=== PATIENT | male | born 1975 | race Caucasian/White ===

== ENCOUNTER 2025-06-18 09:56 | Outpatient (REF) | payer OTHER, SELFPAY ==
[2025-06-18 14:46] LABS: Hematocrit 45.9 % (42.0-52.0); Hemoglobin 15.5 g/dl (14.0-18.0); Mean Corpuscular HGB Conc 33.8 g/dl (31.0-36.0); Mean Corpuscular Hemoglobin 29.4 pg (27.0-33.0); Mean Corpuscular Volume 86.9 fL (80.0-98.0); NRBC Abs Auto 0.000 X10*3/uL (0.0-0.012); NRBC Pct Auto 0.0 /100WBC (0.0-0.2); Platelet Count 286 X10*3/uL (160-400); Red Blood Count 5.28 X10*6/uL (4.60-5.80); White Blood Count 6.6 X10*3/uL (4.8-10.8)
[2025-06-18 15:13] LABS: Alanine Aminotransferase 26 U/L (0-40); Albumin Level 4.5 g/dL (3.5-5.0); Alkaline Phosphatase 53 U/L (39-117); Anion Gap 10 (12-20); Aspartate Amino Transferase 18 U/L (5-37); Blood Urea Nitrogen 11 mg/dL (9-16); Calcium 9.7 mg/dL (8.4-10.2); Carbon Dioxide 31 mmol/L (22-29); Chloride 106 mmol/L (96-108); Cholesterol 202 mg/dL (<200); Estimated Glomerular Filt Rate > 60; HDL Cholesterol 46 mg/dL (>40); Potassium 4.2 mmol/L (3.3-5.1); Sodium 143 mmol/L (135-145); Total Protein 7.1 g/dL (6.5-8.0); Triglycerides 188 mg/dL (<150)
[2025-06-18 15:36] LABS: Folate > 20.0 ng/mL (> or = 4.0); Vitamin B12 512 pg/mL (200-900)
== END 2025-06-18 09:57 | disposition home or self-care (01) ==
LOC: HO.WFDLDS 09:56
PROVIDERS: PCP Nurse Practitioner Family; Visit Provider Nurse Practitioner Family
DX: Z00.00 Encounter for general adult medical examination without abnormal findings (principal); Z12.5 Encounter for screening for malignant neoplasm of prostate; Z23 Encounter for immunization; Z76.89 Persons encountering health services in other specified circumstances; M41.115 Juvenile idiopathic scoliosis, thoracolumbar region; M54.16 Radiculopathy, lumbar region
CPT/HCPCS: 36415; 80053; 80061; 82043; 82306; 82570; 82607; 82746; 83036; 84153; 84443; 85027; 90471; 90715; 96127

== ENCOUNTER 2025-06-18 09:56 | Outpatient (AMB) | payer OTHER, SELFPAY ==
--- NOTE | 2025-06-18 10:02 | MHC.PC.OV ---
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 Allergies oxycodone (From PERCOCET) Allergy (Unknown, Verified 06/18/25 10:27) RASH percocet Allergy (Unknown, Uncoded 06/18/25 10:06) rash Medication List - Last Reconciled 06/18/25 by VONDA Schmitt No Known Home Meds Tobacco use date assessed: 06/18/25 Dental Screening Dental Screen Date: 06/18/25 Did you have a dental visit in the last 12 months?: Yes Did you have a dental problem in the last 6 months where you did not have access to dental care?: No Was dental information given to patient?: Patient has dentist HPI HPI Comments History of Present Illness Details 50 y/o M with scoliosis with chronic low back pain with RLE radiculopathy s/p spinal fusion x 2 in 1989, 1992; 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 PCP: Dr Coby Rosario records Scoliosis with History of Spinal Fusion Surgeries: - Diagnosed with scoliosis, had spinal surgeries in 1989 and 1992. - Lumbar and thoracic areas affected. - Back brace used extensively Chronic low back pain d/t scoliosis s/p surgery. R foot is numb. Reports had EMG done in the past and was told it was a pinched nerve. - Sciatic issues with foot numbness, painful flare-ups. - Pinched nerve diagnosed previously. - Hip bone graft and muscle activity during exercise identified as potential aggravators. Review of Systems - Musculoskeletal: Reports history of scoliosis; denies chronic back pain; reports sciatic nerve issues with foot numbness and occasional flare-ups. - Neurological: Denies significant headaches; reports numbness in the foot. - Integumentary: Reports past skin rash with oxycodone use. - Respiratory: Denies breathing difficulties despite spinal condition. - Allergic/Immunologic: Reports allergies to oxycodone (rash) - General: Denies other surgeries besides spinal fusions and orbital tumor removal. Physical Exam General: Well developed, well nourished, in no acute distress. Appears stated age. Head: Normocephalic, atraumatic. Eyes: Pupils are equal, round and reactive to light and accommodation. Conjunctivae are clear. Vision grossly normal. Lungs: Clear to auscultation bilaterally. No rales, rhonchi or wheeze noted. Good air flow in all velazquez. Heart: Regular rate and rhythm. No murmurs, click, rubs or gallops are noted. Musculoskeletal: Joints are nontender, without swelling, redness, or effusions. Pulses: Peripheral pulses are equal and palpable bilaterally. Extremities: No clubbing, cyanosis nor edema is noted. Neuro: BRUNNER x 4, normal strength, tone and reflexes BLE. Large scar to back from surgery. Psych: Mood and affect appropriate. No anxiety or depression noted from screenings or during intake. Results Pending Discussion Notes I discussed with the patient the current status of his scoliosis and sciatic issues. We reviewed the management and importance of consistent follow-ups and considering referrals to a specialized spine/pain clinic for comprehensive evaluations. We addressed his concerns about follow-up care post-specialist visits and clarified the process. Additionally, addressed were his past allergies and the importance of vigilance with medications. Discussed routine screenings, including blood draws for wellness and PSA. Encouraged utilization of the [facility] for communicating with our office directly. Patient was given time to ask questions. All questions were answered to their satisfaction. Assessment and Plan 1. Scoliosis with History of Spinal Fusion Surgeries - Monitor symptoms. - Referral to spine/pain clinic. 2. Sciatic Nerve Complications Secondary to Spinal Surgery - Evaluate at spine/pain clinic. - Avoid aggravating activities. - Declined PT 3. Preventative Care and Screenings - PSA and routine labs planned. - Complete previous medical records release. - Tdap admin today Patient Instructions - Schedule an appointment with the spine/pain clinic for evaluation. - Avoid any strenuous activities that cause sciatic pain. - Fill out the release of records form at the [facility] before leaving. - Get blood work done today including PSA screening. - Sign up and use the [facility] for communication with the office. - RTO in 4-6 weeks for CPE. Sooner as needed. Consent Patient was informed and verbally consented to the use of an ambient scribe for clinic note documentation during this visit. Total time spent caring for the patient today was 30 minutes. This includes time spent before the visit reviewing the chart, time spent during the visit, and time spent after the visit on documentation, reviewing laboratory results, diagnostic imaging, medications, performing a medically necessary evaluation, counseling on diagnoses, care coordination, ordering appropriate tests, ordering appropriate medications, review of tests performed by other providers, reporting test results with the patient, communication with other healthcare providers. PFSH Medical History (Updated 06/18/25 @ 10:50 by KANIKA Schmitt) Sciatica Scoliosis Family History (Updated 06/18/25 @ 10:20 by Regina Bronson [facility]) Father FH: mental illness Dementia Oral cancer Maternal Grandmother FH: mental illness Alzheimer dementia Paternal Grandfather Substance abuse Alcoholism Cancer Mother Asthma Cardiovascular disease Sister Hyperlipemia Social History (Updated 06/18/25 @ 10:09 by Regina Bronson [facility]) Housing: House Alcohol intake: current Patient Tobacco Use Status: Never used Tobacco e-Cigarette/Vaping Use: Never Used Second Hand Smoke Exposure: Yes service: No Current occupational status: employed 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 1. Little interest or pleasure in doing things: not at all 2. Feeling down, depressed, or hopeless: not at all 3. Trouble falling or staying asleep, or sleeping too much: not at all 4. Feeling tired or having little energy: not at all 5. Poor appetite or overeating: not at all 6. Feeling bad about yourself - or that you are a failure or have let yourself or your family down: not at all 7. Trouble concentrating on things, such as reading the newspaper or watching television: not at all 8. Moving or speaking so slowly that other people could have noticed. Or the opposite - being so fidgety or restless that you have been moving around a lot more than usual: not at all 9. Thoughts that you would be better off or of hurting yourself in some way: not at all Total score: 0 Depression Screening Interpretation: Negative Depression Screening Done: Yes 07681 - PHQ-9 Billing: Yes Source: Developed by Drs. Luis Babin, Jovanna Villa, Regino Sheikh and colleagues, with an educational ganesh from [employer]. Thrive Questionnaire Date Thrive assessed: 06/18/25 I am a: Patient What is your living situation today?: I have a steady place to live Within the past 12 months, did the food you bought not last and you didn't have the money to get more?: Never true Within the past 12 months, did you worry whether your food would run out before you got money to buy more?: Never true Do you have trouble paying for medicines?: No Do you have trouble getting transportation to medical appointments?: No Do you have trouble paying your heating and electricity bill?: No Do you have trouble taking care of your child, family member or friend?: No Do you have trouble with day-to-day activities such as bathing, preparing meals, shopping, managing finances, etc.?: No Are you currently unemployed and looking for a job?: No Are you interested in more education?: No Please select the resources that you would like help with: None Currently or been in a relationship where the following occur: No concerns reported THRIVE Score: 0 AUDIT C Alcohol Use Questionnaire (AUDIT-C) 1. How often do you have a drink containing alcohol?: 2-4 times a month 2. How many drinks containing alcohol do you have on a typical day when you are drinking?: 1 or 2 3. How often do you have six or more drinks on one occasion?: Never Total Score: 2 Score Reviewed/Action Taken: Yes ZHAO-7 AMB Questionnaire ZHAO-7 Date ZHAO - 7 assessed: 06/18/25 Feeling nervous, anxious, or on edge: 0 = Not at all Not being able to stop or control worryin = Not at all Worrying too much about different things: 0 = Not at all Trouble relaxin = Not at all Being so restless that it is hard to sit still: 0 = Not at all Becoming easily annoyed or irritable: 0 = Not at all Feeling afraid as if something awful might happen: 0 = Not at all Total ZHAO-7 score (0-4 normal; 5-9 mild; 10-14 moderate; 15-21 severe): 0 Source: Developed by Drs. Luis Babin, Jovanna Villa, Regino Sheikh and colleagues, with an educational ganesh from [employer]. ZHAO-7 Assessment Billing ZHAO-7 Assessment Tool: ZHAO-7 Assessment 36783 Physical exam (Primary Care) Vital Signs: Last Vital Signs Temp 97.7 F 06/18/25 10:10 Pulse 82 06/18/25 10:10 Resp 15 06/18/25 10:10 BP 116/78 06/18/25 10:10 Pulse Ox 98 06/18/25 10:10 Oxygen Delivery Method Room Air 06/18/25 10:10 BMI result Body Mass Index 24.6 Tobacco/Smoking Status: Tobacco use Status Tobacco use date assessed 06/18/25 06/18/25 10:13 Patient Tobacco Use Status Never used Tobacco 06/18/25 10:13 e-Cigarette/Vaping Use Never Used 06/18/25 10:13 PHQ-9: PHQ-9 Score PHQ-9: Total score 0 06/18/25 10:04 Depression Screening Interpretation: Negative Thrive Assessment: Date of Thrive Assessment Date Thrive assessed 06/18/25 06/18/25 10:04 Currently or been in a relationship where the following occur: No concerns reported Immunizations Boostrix Tdap 2.5 Lf unit-8 mcg-5 Lf/0.5 mL intramuscular syringe Performing Provider: VONDA Schmitt Performing Location: [facility] Family Medicine Administered by: Regina Bronson CMA on 06/18/25 10:29 Dose Route Admin Location Dispensed Lot Number Expiration Date [facility] Candy Vendor 0.5 mL IM Left Deltoid 0.5 mL [id number] 07/05/27 10426-529-31 [employer] Total Dispensed Waste 0.5 mL 0 % VIS Given Date VIS Provided VIS Publication Date 06/18/25 Single Vaccine 21 Eligibility Eligibility Date Funding Source Not [facility] Eligible 06/18/25 Private Coding Level of Care Code New Pt Level 3 (67222) Complex EM visit Add On G2211 Diagnoses Encounter to establish care with new provider Z76.89 Need for Tdap vaccination Z23 Juvenile idiopathic scoliosis of thoracolumbar region M41.115 Scoliosis type: idiopathic Idiopathic scoliosis type: juvenile Spinal region: thoracolumbar Lumbar back pain with radiculopathy affecting right lower extremity M54.16 Additional Codes PHQ-9 - 54339 - PHQ-9 Billing: Yes ([id number]) ZHAO-7 Assessment Billing - ZHAO-7 Assessment Tool: ZHAO-7 Assessment 73122 ([id number]) Assessment & Plan Assessment & Plan (1) Encounter to establish care with new provider: Code(s): Z76.89 - Persons encountering health services in other specified circumstances (2) Need for Tdap vaccination: Onset Date: ~06/18/25 Code(s): Z23 - Encounter for immunization Category: Medical (3) Scoliosis: Code(s): M41.9 - Scoliosis, unspecified Category: Medical Qualifiers: Scoliosis type: idiopathic Idiopathic scoliosis type: juvenile Spinal region: thoracolumbar Qualified Code(s): M41.115 - Juvenile idiopathic scoliosis, thoracolumbar region (4) Lumbar back pain with radiculopathy affecting right lower extremity: Code(s): M54.16 - Radiculopathy, lumbar region Category: Medical Plan . Orders: Orders TDaP Immunization Today Z23 - Encounter for immunization Complete Blood Count no Diff Today Z00.00 - Encounter for general adult medical examination without abnormal findings Hemoglobin A1c Today Z00.00 - Encounter for general adult medical examination without abnormal findings Vitamin B12 and Folate Today Z00.00 - Encounter for general adult medical examination without abnormal findings Vitamin D 25-OH Total Today Z00.00 - Encounter for general adult medical examination without abnormal findings Comprehensive Met. Panel Today Z00.00 - Encounter for general adult medical examination without abnormal findings Lipid Panel Today Z00.00 - Encounter for general adult medical examination without abnormal findings Microalbumin, Random (w Creat) Today Z00.00 - Encounter for general adult medical examination without abnormal findings Prostate Specific Antigen Scr Today Z00.00 - Encounter for general adult medical examination without abnormal findings TSH reflex Free T4 Today Z00.00 - Encounter for general adult medical examination without abnormal findings Referrals Pain Management Referral M41.9 - Scoliosis, unspecified, M54.16 - Radiculopathy, lumbar region Patient Instructions: Walk-In Care (Urgent Care): We Make it Easy Walk-in for urgent medical issues such as: ? Seasonal Allergies ? Insect Bites ? Cough ? Diarrhea ? Acute Asthma Attacks ? Back, Knee or Joint Pain ? Ear Infection ? Fever without a Rash ? Headaches ? Nausea ? [place] Eye, Rash or Skin Irritation ? Sore Throat ? Sports Physicals ? Vomiting Most insurances are accepted. Patients do not need to be part of the [facility] to seek care at the walk-in clinic. Locations [address] [place] [address] Open Tuesday through Tuesday 8am-5pm *Hours may vary due to staffing availability. To confirm Walk-In Care hours please call. [address] [facility] , [place] [address] ? [phone] [facility] Walk-In Care in [place] provides services to ages 18 and over. Open Tuesday-Tuesday: 7 a.m. to 5 p.m. and Tuesday: 9 a.m. to 3 p.m.* *Hours may vary due to staffing availability. To confirm Walk-In Care hours in [place], please call [phone]. [address] [place] [address] ? [phone] [facility] Walk-In Care in [place] provides services to ages 12 and over. Open Tuesday-Tuesday: 8 a.m. to 5 p.m. Hours may vary due to staffing availability. To confirm Walk-In Care hours in [place], please call [phone]. LABORATORY SERVICES: [facility] Lab ? Primary Location [address] [place] [address] Tuesday through Tuesday 6:00 AM ? 5:00 PM Tuesday 7:00 AM ? 11:00 AM* [phone] The [facility] Lab is centrally located near the front entrance of the [facility] for easy outpatient access. Convenient parking is provided for outpatients. *Hours may vary due to staffing availability. To confirm Laboratory hours for any location, please call [phone]. Offsite Location For your convenience, we offer offsite laboratory draw stations at the following locations: [address] [place] [address] ? [address], [address] Tuesday through Tuesday 7:30 AM ? 1:00 PM* [phone] *Hours may vary due to staffing availability. To confirm Laboratory hours for any location, please call [phone]. [place] [address], [place] Tuesday through Tuesday 6:00 AM ? 3:30 PM* Tuesday 6:30 AM ? 3 PM* [phone] *Hours may vary due to staffing availability. To confirm Laboratory hours for any location, please call [phone]. [address] [facility] Tuesday through Tuesday 7:30 AM ? 4:00 PM* [phone] *Hours may vary due to staffing availability. To confirm Laboratory hours for any location, please call [phone]. [address] [facility] Tuesday through 9:00 AM ? 4:00 PM* *Hours may vary due to staffing availability. To confirm Laboratory hours for any location, please call [phone]. Appointments are not necessary. Walk-ins are welcome. Like all the departments throughout the [facility], our Lab undergoes frequent reviews to ensure the quality and accuracy of test results, and our staff takes special pride in its status as a nationally accredited facility. Patient Portal: [facility] ONE PATIENT. ONE RECORD. BETTER CARE. [facility] has a fully integrated, cutting-edge mobile electronic health information system that has revolutionized the way we care for our patients and manage our organization. This system improves communication and coordination enabling us to provide safe, higher-quality care, and an overall positive experience for staff and patients. Our first priority, as always, is to deliver the highest quality care possible. The system is running in the background supporting that priority. This portal is for all [facility] services and practices. If you are experiencing any technical difficulties with enrolling or logging into the Patient Portal please complete the [facility] Patient Portal Technical Support Form. [facility] now offers a new secure on-line interactive tool for patients to review their health information ? ?Patient Portal. This interactive web portal will enable patients and their families to take an active role in their care by providing easy, secure access to their health information via the internet. The Patient Portal provides patients with instant access to their health information, including laboratory results, medications, allergies, demographic information, visit history, and more. In addition to managing their own care, parents and health care proxies with authorized consent will appreciate the ability to access the records of those individuals for whom they provide care. Please note: if you wish to gain access (Proxy) to another patient?s portal, you will be required to come to the Medical Records Department in person at [facility]. Both the patient giving proxy access and the proxy will need to provide photo identification and complete the appropriate authorization. The Patient Portal also allows track their appointments online. The [facility] Patient Portal also saves patients time by allowing them to submit updates to their demographic and contact information prior to their visits. Portal email notifications will also alert patients to any new activity on their portal, such as test results and new appointments. In order to initially enroll in the [facility] Patient Portal, you will need to enter some required information including the following: your [facility] Medical Record number your personal home email address name date of Please note: In order to enroll in the [facility] Patient Portal, we need to have your email address on file in your electronic medical record. ?The email address needs to be specific for one person (yourself) in order for your Portal enrollment to be successful. ?You can update your email address in person with our Registration staff when you are registering for a hospital visit. ?Otherwise, you will need to come to the Health Information Management (Medical Records) Department at [facility]. ?We are open from Tuesday ? Tuesday from 7:30 a.m. ? 4:30 p.m. ?You will be required to present a photo id. Once you have successfully enrolled in the Patient Portal, you will receive a one-time user id and password for the Portal, sent to your email address. ?This will allow you to log into the Patient Portal within 99 hrs and reset your own logon id and password, and define personal security questions. ?Once your permanent login and password have been set, you can log into the [facility] Patient Portal at any time via the blue button above or from the Portal Logon button on any page of the [facility] website. [facility] encourage all of our patients to enroll in Patient Portal as it presents a valuable opportunity for patients and their families to actively participate in their care and stay healthy Welcome to [facility]. ?We look forward to working with you.
[2025-06-18 10:10] VITALS: BP 116/78; PULSE 82; RESP 15; TEMP 36.5; O2SAT 98; BMI 24.6
--- OUTSIDE RECORDS SUMMARY | 2025-06-18 11:38 | XMS_ITS | Clinical Summary ---
Author Organization [facility] Address [address] [place] [id number] Phone Care Team Providers Care Public Accountant Name Role Phone Ashok Tenorio MD Primary Care Provider [phone] Allergies Active Allergy Reactions Criticality Noted Date Comments Oxycodone-Acetaminophen Rash Low 06/16/2021 Medications No known medications Social History Tobacco Use Types Packs/Day Years Used Date Smoking Tobacco: Never Assessed Education Answer Date Recorded Are you interested in more education? Not on rolando e 01/08/2023 Are you concerned about learning? Not on file 01/08/2023 No 01/08/2023 No 01/08/2023 Digital Access Answer Date Recorded No 02/08/2023 No 02/08/2023 Reliable internet access at home? Not on file 02/08/2023 Device with a working camera? Not on file Sex and Gender Information Value Date Recorded Sex Assigned at Not on file Legal Sex Male 4:17 PM EDT Gender Identity Not on file Sexual Orientation Not on file Last Filed Vital Signs Vital Sign Reading Time Taken Comments Blood Pressure 145/80 06/16/2021 4:27 PM EDT Pulse 104 06/16/2021 4:27 PM EDT Temperature 36.3 C (97.3 F) 06/16/2021 4:27 PM EDT Respiratory Rate 18 06/16/2021 4:27 PM EDT Oxygen Saturation 96% 06/16/2021 4:27 PM EDT Inhaled Oxygen Concentration - - Weight 65.8 kg (145 lb) 06/16/2021 4:27 PM EDT Height 170.2 cm (5' 7 ) 06/16/2021 4:27 PM EDT Body Mass Index 22.71 06/16/2021 4:27 PM EDT Plan of Treatment Health Maintenance Due Date Last Done Comments LIPID PANEL 1973 DEPRESSION SCREENING 1985 SMOKING Hx and SMOKELESS TOBACCO SCREENING 1986 HEPATITIS C SCREENING 1991 HIV ONE-TIME SCREENING (18-6 5 YEARS) 1991 COLOGUARD 2018 COLONOSCOPY 2018 COLORECTAL CANCER SCREENING 2018 FIT TEST 2018 FOBT 2018 SIGMOIDOSCOPY 2018 VIRTUAL COLONOSCOPY 2018 PNEUMOCOCCAL VACCINES (50+ years) (1 of 1 - PCV) 2023 ZOSTER VACCINES (1 of 2) 2023 Adult Td,Tdap Booster 05/15/2023 05/15/2013 INFLUENZA VACCINE (#1) 2025 , 06/26/2019 COVID-19 VACCINE (4 - 2024-2 6 season) 2025 08/11/2021, 02/03/2021, 01/06/2021 RSV VACCINE (1 - 1-dose 75+ series) 2048 HEPATITIS A VACCINES Aged Out No long er eligible based on patient's age to complete this topic HIB VACCINES Aged Out No longer eligi ble based on patient's age to complete this topic MENINGOCOCCAL VACCINES (ACWY) Aged Out No longer eligible based on patient's age to complete this topic MENINGOCOCCAL VACCINES (B) Aged Out N o longer eligible based on patient's age to complete this topic Medical Devices Not on file Insurance [facility] UNITED PPO UNITED PPO UNITED PPO UNITED PPO UNITED PPO [place] [address] [place] [address] [place] [address] [place] [address] [place] [address] [address] [place] [address] INSURANCE Care Teams Public Accountant Relationship Specialty Start Date End Date Ashok Tenorio MD [address] [place] [id number] PCP - General Internal Medicine 06/16/21 Additional Source Comments The information contained in this document represents components of the legal health record. It is not the complete legal health record.[facility]
== END 2025-06-18 10:46 | disposition home or self-care (01) ==
LOC: HO.HMCFM 09:58
PROVIDERS: PCP Nurse Practitioner Family; Visit Provider Nurse Practitioner Family
DX: Z76.89 Persons encountering health services in other specified circumstances (principal); Z23 Encounter for immunization; M41.115 Juvenile idiopathic scoliosis, thoracolumbar region; M54.16 Radiculopathy, lumbar region

== ENCOUNTER 2025-07-16 14:51 | Outpatient (REF) | payer OTHER, SELFPAY ==
--- NOTE | ~2025-07-16 | XR_ITS ---
EXAMINATION: XR LUMBOSACRAL SPINE WITH OBLIQUES CLINICAL INFORMATION: M54.16 - Radiculopathy, lumbar region COMPARISON: None available. TECHNIQUE: AP oblique and lateral views. FINDINGS: Levoconvex rotoscoliosis apex at L3. Multiple metallic hardware from a posterior thoracolumbar fusion that appears grossly intact from the distal thoracic spine to L5. Calcifications throughout the anterior longitudinal ligament and multilevel endplate sclerosis with decreased intervertebral disc height. No acute cortical disruption. Facet joint hypertrophy on the right L5-S1. Osteopenia versus osteoporosis. XR/XR lumbar spine 4V min IMPRESSION: Status post thoracolumbar fusion no fully evaluated. Levoconvex rotoscoliosis and multilevel thoracolumbar spondylosis. Ankylosis spondylitis cannot be entirely excluded. Electronically signed by: Catalino Harkins MD 07/16/2025 04:01 PM JESSIKA VALENTE
== END 2025-07-16 14:52 | disposition home or self-care (01) ==
LOC: HO.XRAY 14:51
PROVIDERS: PCP Nurse Practitioner Family; Referring Provider Nurse Practitioner Family; Visit Provider Nurse Practitioner Family
DX: M54.16 Radiculopathy, lumbar region (principal); M47.817 Spondylosis without myelopathy or radiculopathy, lumbosacral region; M41.115 Juvenile idiopathic scoliosis, thoracolumbar region; Z98.1 Arthrodesis status; Z98.890 Other specified postprocedural states; Z87.39 Personal history of other diseases of the musculoskeletal system and connective tissue
CPT/HCPCS: 72110

== ENCOUNTER 2025-07-16 14:51 | Outpatient (AMB) | payer OTHER, SELFPAY ==
--- NOTE | 2025-07-16 14:52 | A.OFFVIS_ITS ---
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 The patient has a history of scoliosis for which he underwent back surgery at [facility]. The initial surgery was performed due to scoliosis at age 14, and the patient later required additional surgery due to worsening curvature in the upper spine. The patient reports chronic pain that radiates from the back to the right leg laterally, extending to the foot, with numbness and tingling affecting all toes, more numbness than tingling. The pain is described as sharp and severe during flare-ups, with more leg pain than back pain. Currently, he reports no back pain and persistent numbness in his right leg in L5 distribution. An EMG conducted in 2022 indicated chronic right L5 radiculopathy without generalized polyneuropathy, and an MRI was recommended but not yet performed. The patient manages pain with Tylenol or Aleve and avoids movement during flare- ups. He engages in physical activities such as hiking and walking but finds stretching exercises can exacerbate symptoms. The patient denies any history of diabetes, osteoporosis, or smoking, and reports social alcohol consumption. Denies smoking or marijuana use. - Onset: Chronic, with flare-ups - Quality: Sharp, aching, numbness, cramping, tightness and severe during flare- ups - Location: Radiates from back to right leg, extending to the foot with associated numbness, occasional tingling - Radiation: To the side of the heel and lateral part of the right foot and toes - Exacerbating factors: Movement and stretching exercises, heavy lifting, prolonged walking, sitting, and standing - Relieving factors: Tylenol, Aleve, and avoiding movement - Interference: Affects physical activities such as hiking and walking - Affect: Pain impacts physical activity, but no mention of mood impact - Analgesia: Uses Tylenol and Aleve, pain is sharp during flare-ups - Adverse Effects: None reported from current medications - Activities of Daily Living: Pain affects hiking and walking, avoids movement during flare-ups - Aberrant Drug Related Behaviors: None reported Oswestry Low Back Pain Disability Score=3 PFSH Medical History (Updated 07/16/25 @ 15:37 by ISRRAEL Masterson) Lumbar back pain with radiculopathy affecting right lower extremity Juvenile idiopathic scoliosis, thoracolumbar region Scoliosis Sciatica Surgical History (Updated 07/16/25 @ 15:13 by ISRRAEL Masterson) History of spinal fusion for scoliosis Family History (Updated 06/18/25 @ 10:20 by Regina Bronson [facility]) Father FH: mental illness Dementia Oral cancer Maternal Grandmother FH: mental illness Alzheimer dementia Paternal Grandfather Substance abuse Alcoholism Cancer Mother Asthma Cardiovascular disease Sister Hyperlipemia Social History (Updated 06/18/25 @ 10:09 by Regina Bronson [employer]) Housing: House Alcohol intake: current Patient Tobacco Use Status: Never used Tobacco e-Cigarette/Vaping Use: Never Used Second Hand Smoke Exposure: Yes service: No Current occupational status: employed 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 Current occupational exposures/hazards: Yes Cognitive needs: No Hearing needs: No Vision needs: No Review of Systems Const Details: - Musculoskeletal: Reports chronic back pain radiating to right leg, numbness and tingling in all toes - Neurological: Reports numbness in right leg after prolonged sitting, denies weakness, foot drop or incontinence - General: Denies diabetes, osteoporosis, smoking or marijuana use; reports social alcohol use All systems reviewed & are unremarkable except as noted in HPI and below Physical Exam Vital Signs: Last Vital Signs Pulse 82 07/16/25 14:57 BP 119/66 07/16/25 14:57 Pulse Ox 100 07/16/25 14:57 Oxygen Delivery Method Room Air 07/16/25 14:57 BMI result Body Mass Index 24.4 General: Appears afebrile. Alert and oriented. Mood and affect appropriate. Follows and participates in conversation appropriately. Respiratory effort is unlabored. No cough. Able to transition from sit to stand unassisted. Ambulates with bilaterally normal heel strike and toe off. General: Yes no CVA tenderness Back/Spine/Pelvis Other: Patient is able to walk and stand on heels and tip toes with no difficulties demonstrating good motor tone. Normal gait, no limping. Lumbar extension reproduces [id number] pain, flexion is limited and does not reproduce pain. No midline tenderness in cervical, thoracic or lumbar spine. Midline incision from cervical to lower lumbar spine with normal scarring and without tenderness. Demonstrates 5/5 strength of quadriceps bilaterally as well as flexion/dorsiflexion of bilateral feet against resistance. 2+ pedal pulses bilaterally. Straight leg rise with dorsiflexion positive on the right. +2 patellar and achilles reflexes bilaterally. Facet loading test positive bilaterally. Jarett?s reproduces right lateral hip tightness but no back pain. No groin pain with I/E hip rotations. Valsalva maneuver negative. Back: no CVA tenderness Cervical Spine: cervical ROM normal, cervical muscular tenderness, No Cervical spine scars present and No Cervical spine tenderness Thoracic/Lumbar Spine: thoracic and lumbar spine normal to inspection, Thoracic/lumbar spine scar(s), Lasegue's sign positive on the right and localized, pain with thoraco-lumbar ROM, paraspinal muscle tenderness, No thoracic spinal tenderness and No lumbar spinal tenderness Sacroiliac joints: bilaterally nontender Extrem General: Yes capillary refill normal, Yes no clubbing, cyanosis or edema and Yes no calf tenderness Results Reviewed Results Reviewed: MR LUMBAR SPINE WITHOUT CONTRAST 03/30/2016 RAYUS HISTORY: 40-year-old with lumbar pain and sciatica. History of spinal fusion for scoliosis. DIAGNOSIS: Lumbar radiculitis. COMPARISON: None. ENCOUNTER: Initial. TECHNIQUE: Multiplanar multisequence MR imaging of the lumbar spine was done without IV contrast. FINDINGS: There is marked lumbar levoscoliosis, with a Morgan angle of approximately 54 degrees. There is extensive metallic artifact throughout the lumbar spine related to posterior spinal fusion hardware. There is minimal right to left lateral listhesis at L5-S1. Note that S1 is a transitional segment. There is also minimal retrolisthesis at L5-S1. Vertebral body heights are well- maintained. Ferromagnetic artifact completely obscures visualization of the canal and most of the neural foramina at the L5-S1 level. There is mild disc space narrowing asymmetric to the left with associated disc desiccation consistent with discogenic degenerative change and mild paravertebral spondylosis at this level. There is mild disc bulging at this level. The neural foramina are very difficult to evaluate due to extensive anatomic distortion due to metallic artifact. On image 16 of series 3, 4 and 5, there is posterolateral disc/osteophyte complex encroaching on the inferior right neural foramen and there is suspicion for moderate to marked right-sided foraminal stenosis with possible right L5 nerve root impingement. The canal is completely obscured. The remainder of the lumbar spine demonstrates no definite neural foraminal stenosis within the limitations of the study. The spinal canal is largely obscured throughout the remainder of the lumbar spine. The conus is not visualized. Paraspinal/Retroperitoneal: The visualized paravertebral soft tissues are unremarkable in appearance. IMPRESSION: 1. Very limited study due to extensive ferromagnetic artifact from posterior spinal fusion hardware and also limited due to marked levoscoliosis. 2. S1 is a transitional level. L5-S1 discogenic degenerative changes with disc bulging and paravertebral/posterolateral disc/osteophyte complex asymmetric to the right with suspicion for moderate to marked right-sided neural foraminal stenosis and possible right L5 nerve root impingement. 3. Partial ankylosis of the intervertebral disc spaces also noted at L2-3 and L1-2. Assessment & Plan Assessment & Plan (1) Lumbar back pain with radiculopathy affecting right lower extremity: Comment: EMG RLE 10/28/22 chronic right L5 radiculopathy; recommend MRI LS spine; no generalized polyneuropathy. Code(s): M54.16 - Radiculopathy, lumbar region Category: Medical (2) History of spinal fusion for scoliosis: Code(s): Z98.1 - Arthrodesis status; Z87.39 - Personal history of other diseases of the musculoskeletal system and connective tissue Category: Surgical (3) Chronic low back pain: Code(s): M54.50 - Low back pain, unspecified; G89.29 - Other chronic pain Category: Medical (4) Lumbosacral spondylosis: Code(s): M47.817 - Spondylosis without myelopathy or radiculopathy, lumbosacral region Category: Medical Plan The plan includes initiating physical therapy closer to his home proximity, such as AT in [place], to address the chronic back pain and chronic right sided radiculopathy. Lumbar spine imaging to assess degree of degenerative changes, any subluxation, listhesis, pars defects and hardware status. Gabapentin is recommended for trial at bedtime to manage radiculopathy symptoms, with the possibility of increasing the dosage if effective. Side effects and precautions were discussed with patient, patient is aware to avoid driving or use alcohol while gabapentin trial. An MRI is planned following the completion of physical therapy to further evaluate the radiculopathy and guide treatment options. All questions and concerns have been answered and patient agreed with the treatment plan. Follow up after PT and sooner as needed. Patient was informed and verbally consented to the use of an ambient scribe for clinic note documentation during this visit. Orders: Orders 2 XR lumbar spine 4V min Today M41.115 - Juvenile idiopathic scoliosis, thoracolumbar region, M54.16 - Radiculopathy, lumbar region, Z98.890 - Other specified postprocedural states PT Evaluation and Treatment Today M54.16 - Radiculopathy, lumbar region, Z87.39 - Personal history of other diseases of the musculoskeletal system and connective tissue, Z98.1 - Arthrodesis status Medications: New 2 gabapentin 300 mg PO BEDTIME 30 caps 0RF pain 30 days M54.16 - Radiculopathy, lumbar region Coding Level of Care Code New Pt Level 4 (03860) Diagnoses Lumbar back pain with radiculopathy affecting right lower extremity M54.16 History of spinal fusion for scoliosis Z98.1; Z87.39 Chronic low back pain M54.50; G89.29 Lumbosacral spondylosis M47.817
[2025-07-16 14:57] VITALS: BP 119/66; PULSE 82; O2SAT 100; BMI 24.4
--- OUTSIDE RECORDS SUMMARY | 2025-07-16 17:55 | XMS_ITS | Data Portability ---
Author Organization [facility] Pain Managem ent, PAIN OFFICE Address [address] [facility] [address] [place] [address] Care Team Providers Care Loan Broker Name Role Phone ALAN CALVERT Primary Care Provider ARTURO SAENZ Referring Provider Assessment Encounter Date Assessment Date Assessment LastModified by Organization Details LastModified Time 02/24/2016 02/24/2016 Zaid Watson is a 2 2 year old man with complaints of pain in his right buttock region which radiates into his right lower extremity with numbness and tingling. on exam, he has pain on flexion. Straight leg raising test is positive on the right. He is S/P scoliosis surgery with rods placement in his thoracic region with a posterior fusion with instrumentation in his lumbar spine. He is doing a home exercise program with no pain benefit. I recommend further imaging with MRI Lumbar spine/ CT Scan of the lumbar spine. He will follow up to review the same and formulate further treatment plans. [email or web address] Not available 03/01/2016 08:51:41 04/05/2016 04/05/2016 Zaid Watson is a 2 2 year old man with complaints of pain in his right buttock region which radiates into his right lower extremity with numbness and tingling. on exam, he has pain on flexion. Straight leg raising test is positive on the right. He is S/P scoliosis surgery with rods placement in his thoracic region with a posterior fusion with instrumentation in his lumbar spine. He is doing a home exercise program with no pain benefit. MRI Lumbar spine shows Very limited study due to extensive ferromagnetic artifact from posterior spinal fusion hardware and also limited due to marked levoscoliosis. S1 is a transitional level. L5-S1 discogenic degenerative changes with disc bulging and paravertebral/post erolateral disc/osteophyte complex asymmetric to the right with suspicion for moderate to marked right-sided neural foraminal stenosis and possible right L5 nerve root impingement. Partial ankylosis of the intervertebral disc spaces also noted at L2-3 and L1-2. I recommend a trial of caudal epidural steroid injection under fluoroscopic guidance. The risks and benefits of the procedure were discussed in detail. He wishes to proceed. An appointment has been booked for the same. 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 I have given him a prescription for ativan to be pre procedure. [email or web address] Not available 04/05/2016 15:17:14 05/11/2016 05/11/2016 Zaid Watson is a 2 2 year old man with complaints of pain in his right buttock region which radiates into his right lower extremity with numbness and tingling. on exam, he has pain on flexion. Straight leg raising test is positive on the right. He is S/P scoliosis surgery with rods placement in his thoracic region with a posterior fusion with instrumentation in his lumbar spine. He is doing a home exercise program with no pain benefit. MRI Lumbar spine shows Very limited study due to extensive ferromagnetic artifact from posterior spinal fusion hardware and also limited due to marked levoscoliosis. S1 is a transitional level. L5-S1 discogenic degenerative changes with disc bulging and paravertebral/post erolateral disc/osteophyte complex asymmetric to the right with suspicion for moderate to marked right-sided neural foraminal stenosis and possible right L5 nerve root impingement. Partial ankylosis of the intervertebral disc spaces also noted at L2-3 and L1-2.He is here fora trial of caudal epidural steroid injection under fluoroscopic guidance. The risks and benefits of the procedure were discussed in detail. He wishes to proceed. He will follow up in four weeks [email or web address] Not available 05/12/2016 11:35:51 Plan of Treatment Reminders Order Date Submit Date Provider Last Modified By Organization Details Last Modified Time Details Appointments None record ed. Lab None record ed. Referral None record ed. Procedures None record ed. Surgeries None record ed. Imaging None record ed. Medication Orders None record ed. Patient TargetsNo targets recorded. Patient Instructions Encounter Date Encounter Id Patient Instructions Last Modified By Organization Details Last Modified Time 02/24/2016 [id number] He was advised against bed rest lasting longer than four days and to continue activities as tolerated. [email or web address] Not available 02/24/2016 10:06:13 04/05/2016 [id number] He was advised against bed rest lasting longer than four days and to continue activities as tolerated. [email or web address] Not available 04/05/2016 15:15:21 05/11/2016 [id number] He was advised against bed rest lasting longer than four days and to continue activities as tolerated. [email or web address] Not available 05/12/2016 11:33:22 Reason for Referral None Reported. Results Created Date Observation Date Name Description Value Unit Range Abnormal Flag Note LastModifiedBy Organization Detail LastModifiedTime 03/31/20 16 03/30/2016 MRI, lumba r spine , w/o contr ast No observ ation record ed. [email or web address] [facility] [address] [address], [place], [address], 04/05/2016 15:15:21 Result Notes None recorded. Problems Name Problem SNOMED Code Status Onset Date Resolution Date Notes Provider Name and Address Organization Details Recorded Time Lumbosacral spondylosis without myelopathy 41318032 Active Raul vale MD [address] , [address], [place], [address], [place] [facility] 6 11:35:51 Displacement of lumbar intervertebral disc without myelopathy [id number] Kristopher vale MD [address] , [address], [place], [address], [place] [facility] 6 11:35:51 Lumbosacral radiculitis [id number] Kristopher vale MD [address] , [address], [facility] [place], [address], [place] [facility] 6 11:35:51 Lumbar post-laminecto my syndrome [id number] Kristopher vale MD [address] , [address], [facility] [place], [address], [place] [facility] 6 11:35:51 Spinal stenosis of lumbar region [id number] Kristopher vale MD [address] , [address], [place], [address], [facility] - Pain Management 6 11:35:51 Problem Notes None recorded. Procedures Surgical History Date Name Laterality Status Provider Name and Address Organization Details Recorded Time 6 Caudal Epidural Steroid Injection under fluroscopic guidance completed Raul Hansen MD [address] , [address], [place], [address], [place] - [facility] 05/12/2016 11:35:51 Back Surgery completed Suri Hilton [place] - [facility] 03/02/2016 14:29:28 Lumbar Fusion completed Suri Hilton [place] [facility] 03/02/2016 14:29:28 Imaging Results None recorded. Procedure Notes None recorded. Medical Equipment None Reported. Allergies Allergen ID Allergen Name Allergen Category Reaction Reaction Severity Criticality Documentation Date Start Date Code Code System Note Provider Name and Address Organization Details Recorded Time 49900 acetamino phen / oxycodone medicatio n rash Not available Not available 02/24/2016 47965 3 RxNorm Suri shultz [place] - [facility] 6 09:17:53 Medications Not known to be on any medication Vitals Date Recorded Body mass index (BMI) Body weight Heart rate Body height Oxygen saturation Oxygen saturation in Arterial blood by Pulse oximetry Systolic And Diastolic Provider Name and Address Organization Details Last Updated DateTime 6 21.9 kg/m2 59042.9 318 g 82 /min 170.18 cm 100 % 100 % 129/82 mm[Hg] Suri Hilton [facility] Pain Management 6 09:17:53 Date Recorded Oxygen saturation Oxygen saturation in Arterial blood by Pulse oximetry Heart rate Systolic And Diastolic Provider Name and Address Organization Details Last Updated DateTime 04/05/2016 98 % 98 % 77 /min 133/77 mm[Hg] Suri Hilton [facility] Pain Management 6 14:57:50 Date Recorded Body height Heart rate Oxygen saturation Oxygen saturation in Arterial blood by Pulse oximetry Systolic And Diastolic Provider Name and Address Organization Details Last Updated DateTime 6 170.18 cm 82 /min 99 % 99 % 123/81 mm[Hg] Suri Hilton [place] [facility] Pain Management 6 10:00:27 Social History Question Answer Notes LastModified by Organizat ion Details LastModified Time Tobacco Smoking Status Never Smoker Not Available [employer] 06/27/2020 03:16:10 Which Illicit Or Recreational Drugs Have You Used? No [id number] Information not available 06/27/2020 Education 4 Year College [email or web address] Information not available 02/24/2016 Live Alone Or With Others? With Others [email or web address] Information not available 02/24/2016 Marital Status 6 Informatio n not available 02/24/2016 Sex: Unknown Functional Status Question Answer Note LastModified by Organizat ion Details LastModified Time What is your level of alcohol consumption? Moderate [id number] Information not available 06/27/2020 Are you currently employed? 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 Family History Relationship Description Onset Age of this Age Resolved Age Notes LastModified by Organization Details LastModified Time Mother Problem Back proble ms mick Not available 05/12/2016 11:32:59 Medical History No medical history recorded. Past Encounters Encounter ID Performer Location Encounter Start Date Encounter Closed Date Diagnosis/Indication Diagnosis SNOMED-CT Code Diagnosis ICD10 Code Diagnosis IMO Codes Diagnosis Note [id number] Raul Hansen MD PAIN OFFICE [address] [place] [address] 02/24/2016 09:02:02 02/24/2016 10:06:44 Lumbosacral radiculitis 60028922 M54.17 Lumbar post-laminectomy syndrome 594785929 M96.1 Displaceme nt of lumbar intervertebral disc without myelopathy 42379456 M51.26 Lumbosacra l spondylosis without myelopathy 41811052 M47.817 Spinal robert nosis of lumbar region 16903096 M48.06 [id number] Raul Hansen MD PAIN OFFICE [address] [place] [address] 04/05/2016 14:18:53 04/05/2016 15:18:47 Spinal stenosis of lumbar region 54707020 M48.06 Lumbosacra l spondylosis without myelopathy 23929953 M47.817 Displaceme nt of lumbar intervertebral disc without myelopathy 13281052 M51.26 Lumbosacra l radiculitis 92105889 M54.17 Lumbar post-laminectomy syndrome 115461936 M96.1 [id number] Raul Hansen MD PAIN OFFICE [address] [facility],[address] [address] 05/11/2016 09:49:31 05/12/2016 11:36:33 Lumbosacral spondylosis without myelopathy 88054446 M47.817 Displaceme nt of lumbar intervertebral disc without myelopathy 18236068 M51.26 Spinal robert nosis of lumbar region 12202711 M48.06 Lumbosacra l radiculitis 03113819 M54.17 Lumbar post-laminectomy syndrome 747908690 M96.1 Health Concerns Section Related Observation LastModified by Organization Detai ls LastModified Time None Recorded Concern Status LastModified by Organization Details LastModified Time None Recorded Advance Directives Directive None Recorded Payers Insurance Date Sequence Insurance Name Policy Number Policy Murry Covered Member ID Murry Member ID Guarantor Name 06/04/2016 1 IVETTE (PPO) [id number] Zaid Watson [id number] Zaid Watson Notes Date Note Type Note Provider Name and Address Organization Details Recorded Time 6 text/html Pain Management L-spineReported by PatientHPIFor quality, patient reportsthrobbing,numbess ,burning,aching,sharp, andtingling(he describes the pain as a throbbing pain in his right buttock region which radiates into his right leg . certain movements cause him to have a shooting pain in his right lower extremity.). For severity, patient reportsworseningbut reportscurrent pain level 7/10andworst pain 7/10. For associated symptoms, patient reportsnumbnessbut reportsno weakness,no bladder compromise, andno bowel compromise. For duration, patient reportsconstant. For onset/timing, patient reportsgradual onsetandchronic. 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 For alleviating factors, patient reportsrestandlying down. For aggravating factors, patient reportsstandingandwalkin g. For radiation, patient reportsright le. For work related, patient reportsno. For adl (activities of daily living), patient reportswalking,sweeping, andmopping. For prior imaging, patient reportsnoneandno recent studies. For prior emg, patient reportsnone. For previous surgery, patient reportsfusion(he is s/p lumbar back surgery. he does not have operative reports with him.). For previous injections, patient reportsnone. For previous pt, patient reportsnone(he is doing a home exercise program.). 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 For location, (zaid watson is a 40 year old man with complaints of pain in the right buttock region which radiates into his right lower extremity with numbness and tingling in his right foot. the pain started 3 years ago and is becoming worse. he has history of rods placed for scoliosis and a posterior lumbar fusion done in 1992 at [place] Raul Hansen MD [address] [facility] [address] [address], [place], [address], [facility] - Pain Management 03/05/2016 11:32:27 6 text/html He is here for a follow up to review his MRI Lumbar spine. MRI Lumbar spine shows Very limited study due to extensive ferromagnetic artifact from posterior spinal fusion hardware and also limited due to marked levoscoliosis. S1 is a transitional level. L5-S1 discogenic degenerative changes with disc bulging and paravertebral/posterolat eral disc/osteophyte complex asymmetric to the right with suspicion for moderate to marked right-sided neural foraminal stenosis and possible right L5 nerve root impingement. Partial ankylosis of the intervertebral disc spaces also noted at L2-3 and L1-2. Raul Hansen MD [address] [facility] , [address], [place], [address], [facility] - Pain Management 04/08/2016 10:39:12 6 text/html He is here today for a lumbar epidural steroid injection under fluroscopic guidance. Raul Hansen MD [address] [place] [address] , [address], [facility] [place], [address], [facility] Pain Management 05/21/2016 09:41:27
--- OUTSIDE RECORDS SUMMARY | 2025-07-16 17:55 | XMS_ITS | Clinical Summary ---
Author Organization [facility] Address [address] [place] [phone] Phone Care Team Providers Care Incoming Inspector Name Role Phone Ashok Tenorio MD Primary Care Provider [phone] Allergies Active Allergy Reactions Criticality Noted Date [...] topic Medical Devices Not on file Insurance [facility] UNITED PPO UNITED PPO UNITED PPO UNITED PPO UNITED PPO [place] [address] [place] [address] [place] [address] [place] [address] [place] [address] [place] [address] INSURANCE Care Teams Incoming Inspector Relationship Specialty Start Date End Date Ashok Tenorio MD [address] [place] [id number] PCP - General Internal Medicine 06/16/21 Additional Source Comments The information contained in this document represents components of the legal health record. It is not the complete legal health record.[facility]
== END 2025-07-16 15:20 | disposition home or self-care (01) ==
PROVIDERS: PCP Nurse Practitioner Family; Referring Provider Nurse Practitioner Family; Visit Provider Nurse Practitioner Family
DX: M54.16 Radiculopathy, lumbar region (principal); Z98.1 Arthrodesis status; Z87.39 Personal history of other diseases of the musculoskeletal system and connective tissue; M54.50 Low back pain, unspecified; G89.29 Other chronic pain; M47.817 Spondylosis without myelopathy or radiculopathy, lumbosacral region
CPT/HCPCS: 99204

== ENCOUNTER → 2025-07-16 15:36 | Outpatient (BNV) | payer OTHER, SELFPAY | PROVIDERS: PCP Nurse Practitioner Family; Referring Provider Nurse Practitioner Family; Visit Provider Radiology Diagnostic Radiology | DX: M54.16 Radiculopathy, lumbar region (principal) | CPT/HCPCS: 72110 ==

== ENCOUNTER 2025-07-31 14:48 | Outpatient (AMB) | payer OTHER, SELFPAY ==
--- NOTE | 2025-07-31 14:50 | A.OFFPC_ITS ---
Vital Signs 07/31/25 14:53 07/31/25 15:20 Height 5 ft 7 in Weight 154 lb 8 oz BMI 24.2 BP 100/62 Blood Pressure Location Rt brachial Position Sitting Respiration 15 Pulse 105 H 90 Pulse Source Pulse Oximeter Auscultation Temp 98.8 F Temp Source Temporal Artery Scan Pulse Oximetry (%) 96 Oxygen Delivery Method Room Air Intake Visit Reasons: 4-6 weeks CPE Intake Note: Zaid presents in the office today for his CPE. Allergies oxycodone (From PERCOCET) Allergy (Unknown, Verified 07/31/25 15:03) RASH percocet Allergy (Unknown, Uncoded 07/31/25 14:52) rash Medication List - Last Reconciled 07/31/25 by ISRRAEL Schmitt- gabapentin 300 mg PO BEDTIME 30 days multivitamin 1 tab PO DAILY naproxen sodium (Aleve) 220 mg PO Q12H PRN Tobacco use date assessed: 07/31/25 Dental Screening Dental Screen Date: 07/31/25 Did you have a dental visit in the last 12 months?: Yes Did you have a dental problem in the last 6 months where you did not have access to dental care?: No Was dental information given to patient?: Patient has dentist HPI HPI Comments History of Present Illness Details 50 y/o M with scoliosis with chronic low back pain with RLE radiculopathy, HLD s/p spinal fusion x 2 in 1989, 1992; benign tumor above R eyebrow removed during childhood Fhx: Mom (Yumiko); Dad dementia, oral cancer; 2 brothers alive older bro cholesterol, younger brother needed growth hormone during childhood; No children. Nephews w/ autism. Social: Lives w/ Mom. 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 Pain Mgmt C 06/18/25 LDL 119, TC 202, TG 188, otherwi se labs WNL, PSA 0.8 History of Present Illness The patient is a 50-year-old male presenting for a complete physical exam. Chronic low back pain and radiculopathy: - The patient has a history of chronic l ow back pain and right lower extremity radiculopathy secondary to scoliosis. - He is actively followed by a pain [facility] and was recently started on gabapentin at night and referred to physical therapy. - He reports that both physical therapy and gabapentin are helping, and his condition is not worse. - He experiences numbness at the tip of his right foot, which he describes as feeling like a wet sock, and is attributed to his radiculopathy. - Prior MRIs and imaging have been revie wed Hyperlipidemia: - Recent lab results from 06/18/2025 [facility] wed an LDL of 119 mg/dL and total cholesterol of 202 mg/dL. - His triglycerides were 188. - An eye doctor previously noted cholest javi deposits in his eyes. - The patient believes his diet is healt hy, including oatmeal, and he exercises. - His brother also has high cholesterol, suggesting a possible genetic predisposition. History of colonic polyps: - A colonoscopy in 2022 showed tubular a denomas. - He is due for a repeat colonoscopy in five years, in 2027. Diastasis recti: - The patient has a longstanding separat ion of the abdominal wall muscles, which is asymptomatic. - A prior MRI was performed to evaluate it Past Medical History - Scoliosis with chronic low back pain a nd right lower extremity radiculopathy - Hyperlipidemia - History of tubular adenomas on colonos copy in 2022 - Diastasis recti - Healed burn on hand Family History - Mother: Alive, patient of this practic e. - Father: ; had dementia and ora l cancer. - Brothers: Two brothers, alive and well . The older brother had a history of growth hormone therapy, a hip fracture, and has hypercholesterolemia. - Nephews: Two nephews (one from each br other) have autism. - Uncle: History of skin cancer, likely from sun exposure. - Children: None. 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 - Stressors: Reports significant stress from his work environment and a difficult boss. - Housing: Lives with his mother. - Nutrition: Reports a diet that is not bad, and includes oatmeal with honey and blueberries for breakfast. - Exercise: Reports that he exercises an d goes hiking. Review of Systems - General: Denies any specific new jose rns for today's visit. - Musculoskeletal: Reports chronic low b ack pain which is improving. - Neurological: Reports numbness at the tip of his right foot, describing it as feeling like it's wet. - Skin: Reports dry skin and a healed bu rn on his hand which can get itchy. Denies any persistent rashes or new sores. - HEENT: Denies hearing problems. - Gastrointestinal: Reports normal bowel function. - Genitourinary: Reports normal urinary function. Physical Exam General: Well developed, well nourished, in no acute distress. Appears stated age. Head: Normocephalic, atraumatic. Eyes: Pupils are equal, round and reactive to light and accommodation. Conjunctivae are clear. Scleras nonicteric bilat. Vision grossly normal. Ears: TMs clear AU, EACS WNL. No hearing problems reported. Nose: Patent, without discharge. Neck: No carotid bruit bilat. Supple, no adenopathy or thyromegaly. Breast: Edu on SBE Lungs: Clear to auscultation bilaterally. No rales, rhonchi or wheeze noted. Good air flow in all velazquez. Heart: Regular rate and rhythm. No murmurs, click, rubs or gallops are noted. Abdomen: Bowel sounds present in all quadrants. The abdomen is soft, nontender, with no masses or organomegaly noted. No hernias are noted. Diastasis Recti : Deferred. Reviewed ADA & recommendations Pulses: Peripheral pulses are equal and palpable bilaterally. Pulses in feet are strong. Extremities: No clubbing, cyanosis nor edema is noted. Right foot numbness likely due to radiculopathy. Neurologic: Gait and station normal. Cranial Nerves 2-12 intact. Motor strength grossly symmetrical and intact. No sensory loss. Balance normal. Large scar on back Skin: No rashes, ulcers, or lesions noted. Turgor is good. Skin color is good. Hair and nails are without abnormalities. Psych: Normal eye contact, affect and mood appropriate, and normal interactions. Patient is alert and appropriate to context. Stress from work noted. Results - Labs: - LDL cholesterol: 119 mg/dL (06/18/2025 ) - Total cholesterol: 202 mg/dL (06/18/20 25) - Triglycerides: 188 - PSA: 0.8 - Other labs including diabetes screen, liver function, and vitamin levels were normal. - Procedures: - Colonoscopy (2022): Revealed tubular a denomas. Medical Decision Making The patient is a 50-year-old male here for a complete physical exam. His primary chronic issues are low back pain with radiculopathy, which is stable and improvi ng with current management via pain specialists, including gabapentin and physical therapy. The sensory changes in his right foot are consistent with this radiculopathy, as his peripheral pulses are excellent, making a vascular etiology unlikely. His recent labs revealed borderline hyperlipidemia, with an LDL of 119. Given his healthy lifestyle and family history of high cholesterol, there is likely a genetic component. The patient prefers to monitor this for now, so a repeat lipid panel is planned in one year rather than initiating statin therapy. Health maintenance is up to date, including vaccinations. Due to a history of tubular adenomas on his 2022 colonoscopy, surveillance is required with a repeat procedure in 2027. Annual lab work will continue to include a PSA and diabetes screening. The plan is for a routine follow-up in one year, with instructions given on how to establish patient portal access for easier communication. Plan Health Maintenance - The patient will follow up in one year for his next wellness visit. - Due to a history of tubular adenomas, a follow-up colonoscopy is scheduled for 2027. - Lab orders have been placed for a one- year follow-up, to be completed one week prior to the next visit, and will include a lipid panel, PSA, and diabetes screening. - Assistance will be provided to help th e patient register for the patient portal to facilitate better communication. 1. Hyperlipidemia - The patient's recent labs show borderl ine elevated LDL (119 mg/dL) and total cholesterol (202 mg/dL). - A genetic component is suspected due t o family history and the patient's report of a healthy diet and exercise. - After discussion of options, the patie nt opted for annual monitoring over starting medication at this time. - Plan is to repeat the lipid panel in o ne year. 2. Chronic Low Back Pain With Radiculopa thy - The patient is under the care of a ab n management clinic and reports that gabapentin and physical therapy are providing relief. - Numbness in the right foot is likely a ttributable to the radiculopathy, and it is hoped that current treatment will continue to help this symptom. - No changes to the current management p maico are indicated; the patient will continue with his current regimen. Patient Instructions - Please schedule a follow-up appointmen t for your annual physical in one year. - Get your lab work done about one week before your next appointment. This will include checking your cholesterol, screening for prostate cancer, and screening for diabetes. - Continue with your physical therapy an d taking gabapentin for your back and leg symptoms, as they seem to be helping. - Keep up with your healthy diet and exe rcise routine. - Your next colonoscopy is due in 2027. - Please ask the front office attendant to help you get signed up for the patient portal. This is the best way to contact me if you need anything. - Reach out sooner than one year if you have any changes in your health or other concerns. Consent No procedures requiring specific consent were performed during this visit. Consent for the physical examination was implied. Patient was informed and verbally consented to the use of an ambient scribe for clinic note documentation during this visit. [facility] Medical History (Updated 07/31/25 @ 15:36 by ISRRAEL Schmitt-) Juvenile idiopathic scoliosis, thoracolumbar region Lumbar back pain with radiculopathy affecting right lower extremity Need for Tdap vaccination (~06/18/25) Sciatica Scoliosis Surgical History (Updated 07/16/25 @ 15:13 by ISRRAEL Masterson) History of spinal fusion for scoliosis Family History Father FH: mental illness Dementia Oral cancer Maternal Grandmother FH: mental illness Alzheimer dementia Paternal Grandfather Substance abuse Alcoholism Cancer Mother Asthma Cardiovascular disease Sister Hyperlipemia Social History (Updated 07/31/25 @ 14:53 by Regina Bronson CMA) Housing: House Alcohol intake: current Patient Tobacco Use Status: Never used Tobacco e-Cigarette/Vaping Use: Never Used Second Hand Smoke Exposure: Yes service: No Current occupational status: employed 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 Current occupational exposures/hazards: Yes Cognitive needs: No Hearing needs: No Vision needs: No Questionnaire Thrive Questionnaire Date Thrive assessed: 06/18/25 I am a: Patient What is your living situation today?: I have a steady place to live Within the past 12 months, did the food you bought not last and you didn't have the money to get more?: Never true Within the past 12 months, did you worry whether your food would run out before you got money to buy more?: Never true Do you have trouble paying for medicines?: No Do you have trouble getting transportation to medical appointments?: No Do you have trouble paying your heating and electricity bill?: No Do you have trouble taking care of your child, family member or friend?: No Do you have trouble with day-to-day activities such as bathing, preparing meals, shopping, managing finances, etc.?: No Are you currently unemployed and looking for a job?: No Are you interested in more education?: No Please select the resources that you would like help with: None Currently or been in a relationship where the following occur: No concerns reported THRIVE Score: 0 ZHAO-7 AMB Questionnaire ZHAO-7 Date ZHAO - 7 assessed: 06/18/25 Source: Developed by Drs. Luis Babin, Jovanna Villa, Regino Sheikh and colleagues, with an educational ganesh from [employer]. Physical exam (Primary Care) Vital Signs: Last Vital Signs Temp 98.8 F 07/31/25 14:53 Pulse 105 H 07/31/25 14:53 Resp 15 07/31/25 14:53 BP 100/62 07/31/25 14:53 Pulse Ox 96 07/31/25 14:53 Oxygen Delivery Method Room Air 07/31/25 14:53 BMI result Body Mass Index 24.2 Tobacco/Smoking Status: Tobacco use Status Tobacco use date assessed 07/31/25 07/31/25 14:55 Patient Tobacco Use Status Never used Tobacco 07/31/25 14:53 e-Cigarette/Vaping Use Never Used 07/31/25 14:53 Thrive Assessment: Date of Thrive Assessment Date Thrive assessed 06/18/25 07/31/25 14:52 Currently or been in a relationship where the following occur: No concerns reported Coding Level of Care Code Est Pt Prev Care 40-64y(50380) Diagnoses Adult general medical exam Z00.00 Moderate mixed hyperlipidemia not requiring statin therapy E78.2 Hyperlipidemia type: moderate mixed hyperlipidemia not requiring statin therapy History of colonoscopy Z98.890 Laboratory exam ordered as part of routine general medical examination Z00.00 Diastasis recti M62.08 Assessment & Plan Assessment & Plan (1) Adult general medical exam: Onset Date: ~07/31/25 Code(s): Z00.00 - Encounter for general adult medical examination without abnormal findings Category: Medical (2) HLD (hyperlipidemia): Code(s): E78.5 - Hyperlipidemia, unspecified Category: Medical Qualifiers: Hyperlipidemia type: moderate mixed hyperlipidemia not requiring statin therapy Qualified Code(s): E78.2 - Mixed hyperlipidemia (3) History of colonoscopy: Onset Date: ~11/2022 Comment: Colon 12/06/22 tubular adenoma x 2 Code(s): Z98.890 - Other specified postprocedural states Category: Surgical (4) Laboratory exam ordered as part of routine general medical examination: Code(s): Z00.00 - Encounter for general adult medical examination without abnormal fi ndings Category: Medical (5) Diastasis recti: Code(s): M62.08 - Separation of muscle (nontraumatic), other site Category: Medical Plan . Orders: Orders Comprehensive Met. Panel 1 Year E78.5 - Hyperlipidemia, unspecified, Z00.00 - Encounter for general adult medical examination without abnormal findings Lipid Panel 1 Year E78.5 - Hyperlipidemia, unspecified, Z00.00 - Encounter for general adult medical examination without abnormal findings Prostate Specific Antigen Scr 1 Year E78.5 - Hyperlipidemia, unspecified, Z00.00 - Encounter for general adult medical examination without abnormal findings Hemoglobin A1c 1 Year E78.5 - Hyperlipidemia, unspecified, Z00.00 - Encounter for general adult medical examination without abnormal findings Patient Instructions: Health screenings for men You should visit your health care provider regularly, even if you feel healthy. The purpose of these visits is to: Screen for medical issues Assess your risk for future medical problems Encourage a healthy lifestyle Update vaccinations and other preventive care services Help you get to know your provider in case of an illness Information Even if you feel fine, you should still see your provider for regular checkups. These visits can help you avoid problems in the future. For example, the only way to find out if you have high blood pressure is to have it checked regularly. High blood sugar and high cholesterol level also may not have any symptoms in the early stages. Simple blood tests can check for these conditions. There are specific times when you should see your provider or receive specific health screenings. The [place] Preventive Services Task Force publishes a list of recommended screenings. Below are screening guidelines for men ages 40 to 64. BLOOD PRESSURE SCREENING Have your blood pressure checked at least once every year. Watch for blood pressure screenings in your area. Ask your provider if you can stop in to have your blood pressure checked. Ask your provider if you need your blood pressure checked more often if: You have diabetes, heart disease, kidney problems, or are overweight or have certain other health conditions You have a first-degree relative with high blood pressure You are Black Your blood pressure top number is from 120 to 129 mm Hg, or the bottom number is from 70 to 79 mm Hg If the top number is 130 mm Hg or greater or the bottom number is 80 mm Hg or greater, this is considered stage 1 hypertension. Schedule an appointment with your provider to learn how you can lower your blood pressure. Effects of age on blood pressure CHOLESTEROL SCREENING Cholesterol screening should begin at age 35 for men with no known risk factors for coronary heart disease. Repeat cholesterol screening should take place: Every 5 years for men with normal cholesterol levels More often if changes occur in lifestyle (including weight gain and diet) More often if you have diabetes, heart disease, kidney problems, or certain other conditions COLORECTAL CANCER SCREENING If you are under age 45, talk to your provider about getting screened. You may need to be screened if you have a strong family history of colon cancer or polyps. Screening may also be considered if you have risk factors such as a history of inflammatory bowel disease or polyps. If you are age 45 to 75, you should be screened for colorectal cancer. There are several screening tests available: A stool-based fecal occult blood (gFOBT) or fecal immunochemical test (FIT) every year A stool sDNA test every 1 to 3 years Flexible sigmoidoscopy every 5 years or every 10 years with stool testing FIT done every year CT colonography (virtual colonoscopy) every 5 years Colonoscopy every 10 years You may need a colonoscopy more often if you have risk factors for colorectal cancer, such as: Ulcerative colitis A personal or family history of colorectal cancer A history of growths in your colon called adenomatous polyps DENTAL EXAM Go to the dentist once or twice every year for an exam and cleaning. Your dentist will evaluate if you have a need for more frequent visits. DIABETES SCREENING All adults who do not have risk factors for diabetes should be screened starting at age 35 and repeated every 3 years. If you have other risk factors for diabetes, such as a first degree relative with diabetes, overweight or obesity, high blood pressure, prediabetes, or a history of heart disease, you may be tested more often. If you are overweight and have other risk factors, such as high blood pressure and are planning to become , screening is recommended. EYE EXAM Have an eye exam every 2 to 4 years ages 40 to 54 and every 1 to 3 years ages 55 to 64. Your provider may recommend more frequent eye exams if you have vision problems or glaucoma risk. Have an eye exam that includes an examination of your retina (back of your eye) at least every year if you have diabetes. IMMUNIZATIONS Commonly needed vaccines include: Flu shot: get one every year COVID-19 vaccine: ask your provider what is best for you Tetanus-diphtheria and acellular pertussis (Tdap) vaccine: have as one of your tetanus-diphtheria vaccines if you did not receive it as an adolescent Tetanus-diphtheria: have a booster (or Tdap) every 10 years Varicella vaccine: receive 2 doses if you never had chickenpox or the varicella vaccine and were born in 1979 or after Hepatitis B vaccine: receive 2, 3, or 4 doses, depending on your exact circumstances, if you did not receive these as a child or adolescent, until age 59 Shingles (herpes zoster) vaccine: at or after age 50 Ask your provider if you should receive other immunizations, especially if you have certain medical conditions, such as diabetes or are at increased risk for some diseases such as pneumonia. INFECTIOUS DISEASE SCREENING Screening for hepatitis C: all adults ages 18 to 79 should get a one-time test for hepatitis C. Screening for human immunodeficiency virus (HIV): all people ages 15 to 65 should get a one-time test for HIV. Depending on your lifestyle and medical history, you may need to be screened for infections such as syphilis, chlamydia, and other infections. LUNG CANCER SCREENING You should have an annual screening for lung cancer with low-dose computed tomography (LDCT) if: You are age 50 to 80 years AND You have a 20 pack-year smoking history AND You currently smoke or have quit within the past 15 years OSTEOPOROSIS SCREENING If you are age 50 to 64 and have risk factors for osteoporosis, you should discuss screening with your provider. Risk factors can include long-term steroid use, low body weight, smoking, heavy alcohol use, having a fracture after age 50, or a family history of hip fracture or osteoporosis. Osteoporosis PHYSICAL EXAM All adults should visit their provider from time to time, even if they are healthy. The purpose of these visits is to: Screen for diseases Assess risk of future medical problems Encourage a healthy lifestyle Update vaccinations and other preventive care services Maintain a relationship with a provider in case of an illness Your height, weight, and body mass index (BMI) should be checked at every exam. During your exam, your provider may ask you about: Depression and anxiety Diet and exercise Alcohol and tobacco use Safety, such as use of seat belts and smoke detectors Your medicines and risk for interactions PROSTATE CANCER SCREENING If you're 55 through 69 years old, before having the test, talk to your provider about the pros and cons of having a PSA test. Ask about: Whether screening decreases your chance of dying from prostate cancer. Whether there is any harm from prostate cancer screening, such as side effects from testing or overtreatment of cancer when discovered. Whether you have a higher risk of prostate cancer than others. If you are age 55 or younger, screening is not generally recommended. You should talk with your provider about if you have a higher risk for prostate cancer. Risk factors include: Having a family history of prostate cancer (especially a brother or father) Being If you choose to be tested, the PSA blood test is repeated over time (yearly or less often), though the best frequency is not known. Prostate examinations are no longer routinely done on men with no symptoms. Prostate cancer SKIN EXAM Your provider may check your skin for signs of skin cancer, especially if you're at high risk. People at high risk include those who have had skin cancer before, have close relatives with skin cancer, or have a weakened immune system. TESTICULAR EXAM The US Preventive Services Task Force (USPSTF) now recommends against performing testicular self-exams. Doing testicular self-exams has been shown to have little to no benefit.
[2025-07-31 14:53] VITALS: BP 100/62; PULSE 105; RESP 15; TEMP 37.1; O2SAT 96; BMI 24.2
[2025-07-31 15:20] VITALS: PULSE 90
--- OUTSIDE RECORDS SUMMARY | 2025-08-01 03:20 | XMS_ITS | Clinical Summary ---
Author Organization [facility] Address [address] [place] [id number] Phone Care Team Providers Care Handle Bar Assembler Name Role Phone Ashok Tenorio MD Primary Care Provider [phone] Allergies Active Allergy Reactions Criticality Noted Date [...] on patient's age to complete this topic IPV VACCINES Aged Out No longer eligi ble based on patient's age to complete this topic MENINGOCOCCAL VACCINES (ACWY) Aged Out No longer eligible based on patient's age to complete this topic MENINGOCOCCAL VACCINES (B) Aged Out N o longer eligible based on patient's age to complete this topic Medical Devices Not on file Insurance [facility] UNITED PPO UNITED PPO UNITED PPO UNITED PPO UNITED PPO UNITED PPO UNITED PPO UNITED PPO [employer] Care Teams Handle Bar Assembler Relationship Specialty Start Date End Date Ashok Tenorio MD [address] [place] [id number] PCP - General Internal Medicine 06/16/21 Additional Source Comments The information contained in this document represents components of the legal health record. It is not the complete legal health record.[facility]
== END 2025-07-31 15:26 | disposition home or self-care (01) ==
LOC: HO.HMCFM 14:49
PROVIDERS: PCP Nurse Practitioner Family; Visit Provider Nurse Practitioner Family
DX: Z00.00 Encounter for general adult medical examination without abnormal findings (principal); E78.2 Mixed hyperlipidemia; Z98.890 Other specified postprocedural states; M62.08 Separation of muscle (nontraumatic), other site